=== PATIENT | female | born 1985 | race African-American/Black ===

== ENCOUNTER 2016-12-16 05:41 | Inpatient (IN) ==
[2016-12-16] MEDS ORDERED: DIAZEPAM 5 MG TABLET PO ONE (06:37)
[2016-12-16] MEDS ORDERED: PANTOPRAZOLE 40 MG TABLET PO ONE ×2 (06:37→06:50)
[2016-12-16] MEDS ORDERED: ISOSULFAN BLUE 5 ML VIAL SUBCUT ONE (06:44)
[2016-12-16] MEDS ORDERED: LIDOCAINE 1%/EPI INJ 20 ML VIAL ONE (06:44)
[2016-12-16] MEDS ORDERED: TISSUE ADHESIVE 1 EACH APPLICATOR TOP ONE (06:44)
[2016-12-16] MEDS ORDERED: HEPARIN 5,000 UNIT/1 ML VIAL ONE (06:44)
[2016-12-16] MEDS ORDERED: BUPIVACAINE MPF 0.25% /EPI 30 ML VIAL ONE (06:44)
[2016-12-16] MEDS ORDERED: DIAZEPAM 5 MG TABLET ONE (06:50)
--- NOTE | 2016-12-16 06:50 | History and Physical Update ---
History and Physical Update - History and Physical H&P was reviewed, the patient examined and there: are no changes in the patients condition since last H&P was completed. - Dictation Physical: refer to scanned H&P
[2016-12-16] MEDS ORDERED: LACTATED RINGERS 1,000 ML IV SCH (07:00)
[2016-12-16] MEDS ORDERED: DEXAMETHASONE 10 MG/1 ML VIAL ONE (07:11)
[2016-12-16] MEDS ORDERED: ROCURONIUM 100 MG/10 ML VIAL IV ONE (07:11)
[2016-12-16] MEDS ORDERED: PROPOFOL 200 MG/20 ML VIAL IV ONE (07:11)
[2016-12-16] MEDS ORDERED: ONDANSETRON 4 MG/2 ML VIAL ONE (07:11)
[2016-12-16] MEDS ORDERED: LIDOCAINE 2% 5 ML VIAL ONE (07:11)
[2016-12-16] MEDS ORDERED: KETOROLAC 30 MG/1 ML VIAL ONE (07:11)
--- NOTE | 2016-12-16 09:48 | Anesthesia ---
Anesthesia Post OP - Post Ansesthetic Evaluation Patient seen in post op: Yes Resp: within normal limits CV: within normal limits Mental: within normal limits Temp: within normal limits Bbsk-Sm-[id number]: within normal limits Nausea and Vomiting: within normal limits Pain: within normal limits
[2016-12-16] MEDS ORDERED: MIDAZOLAM 2 MG/2 ML VIAL ONE (09:52)
[2016-12-16] MEDS ORDERED: SEVOFLURANE 1 UNIT/15 MINUTE INH ONE (09:52)
[2016-12-16] MEDS ORDERED: fentaNYL 100 MCG/2 ML VIAL ONE (09:53)
--- NOTE | 2016-12-16 09:53 | Operative Note ---
Date of procedure: 12/16/16 Pre-op diagnosis: left breast cancer Post-op diagnosis: same Procedure: Preoperative diagnosis Left breast cancer Postoperative diagnosis Same Procedures performed 1. Right cephalic vein cutdown Mediport placement 2. Fluoroscopic guidance and interpretation of images 3. Injection for sentinel lymph node mapping left breast and axilla 4. Left axillary sentinel lymph node biopsy 5. Left total mastectomy Findings The cephalic vein was used to cannulate for Mediport placement. Initially the Mediport went across into the brachiocephalic vein on the left side and had to be redirected into the superior vena cava with wire access. Eventually the tip was placed in the cavoatrial junction under fluoroscopic guidance and the system was flushed with heparinized saline. The left axilla contained 3 lymph nodes that were removed. The first lymph node was blue and hot with a Swathi counter of 387. The second lymph node was blue and hot with a Nodaway counter of 38. The third lymph node was blue but not radioactive. The frozen section on these lymph node biopsies were negative for malignancy. A left breast total mastectomy was performed using standard technique with good gross margins on the tumor. Complications None apparent Specimen 1. Left axillary lymph nodes 2. Left total mastectomy with a stitch at the lateral margin. Blood loss 20 mL Anesthesia GETA Indications Left breast cancer with need for postoperative chemotherapy Description of procedure The patient was taken to the operating room and transferred to the operating table in the supine position. Pressure points were padded and SCDs were placed lower extremity's. General endotracheal anesthesia was administered. The bilateral breasts and neck was prepped with chlorhexidine as well as the left arm and there were draped sterilely. Preoperative antibiotics were administered and a timeout was performed. Lymphazurin blue was injected around the nipple Juan Alberto her complex and the area was massaged for 5 minutes to assist with uptake from the dermal plexus lymphatics. The right sided Mediport was then placed. The deltopectoral groove was palpated in the skin incision was made with a 10 blade scalpel. Bovie electrocautery was used to dissected onto the pectoralis muscle. The deltopectoral fat pad was then identified and dissected until the cephalic vein was identified. The cephalic vein is controlled with 2 3-0 Vicryl ties and the distal tie was secured on the vein to occluded. A venotomy was then made in the Mediport catheter was inserted into the cephalic vein. Fluoroscopy was used to visualize the catheter which initially went across into the left brachiocephalic system. Several attempts with catheter alone were inadequate to place this in the superior vena cava so wire was used through the catheter to redirected down and it did go down into the superior vena cava. The wire was removed. A Mediport pocket was created using a Bovie electrocautery and the Mediport was hooked up to the catheter. The flange was then secured down in the Mediport was sewn into the pocket with 3 -0 Vicryl ties. The system was aspirated and returned blood and it was then flushed with heparinized saline. The Mediport pocket was closed with running 4- 0 Monocryl sutures and Steri-Strips are placed with a Telfa Tegaderm dressing. This was then covered up and the left axillary sentinel lymph node biopsy was performed The gamma probe was used to identify the area of radioactivity in the left axilla was just below the axillary hairline. An incision was made with a 10 blade scalpel in this area and Bovie electrocautery was used to dissected the simultaneous tissues and axillary fascia. A blue lymphatic was seen coursing into the axillary lymph nodes. This was traced down to a packet of lymph nodes and there were 3 blue lymph nodes present. The gamma probe was used and these were also radioactive lymph nodes. These were all removed all 3 of them and examined separately on the back table. The first node was blue and also had a Nodaway count of 387. The second node was blue and had a count of 38. The third node was blue and had no radioactivity. The background in the axilla was less than 10. The axillary fascia was closed after the wound was irrigated. 3- 0 Vicryl sutures were used to close the axillary fascia. 4-0 Monocryl subcuticular sutures were used to close the skin and the wound was covered. The lymph nodes were sent to pathology for frozen section analysis. The frozen section came back negative for malignancy on all 3 lymph nodes. An elliptical skin incision was marked out using a marking pen to include the nipple-arreolar complex. An incision was made with a 10 blade scalpel. Bovie electrocautery was used to create skin flaps below the dermis and the simultaneous fat and the breast tissue. The flaps were extended superiorly to the clavicle, medially to the sternum, inferior lead to the inframammary fold, and laterally to the latissimus dorsi muscle. The breast tissue was then taken off of the pec muscle with the pec muscle fascia using Bovie electrocautery. The specimen was marked the lateral stitch and sent to pathology for permanent sections. The wound was irrigated. The wound was then treated with Tisseel application and a #10 SHAWNA drain was placed in the wound. The SHAWNA drain was sewn at the skin level using nylon sutures. The breast incision was closed with a 2- 0 Monocryl deep dermal suture and a 4-0 Monocryl running subcuticular suture. The wound was dressed with Mastisol and Steri-Strips and sterile dressings were applied. A compressive dressing was then placed with a sports problem to compress the tissues. The patient was awakened from anesthesia and transferred to recovery. Postoperative plan SHAWNA drain monitoring and pain control. Implants: right sided mediport placement #10 SHAWNA drain Anesthesia: TARIQA, local Surgeon / Physician: Mason Cuellar Estimated blood loss: minimal (20 mL) Specimens: other (see op note) Condition: stable Disposition: PACU Discharge Plan - Discharge Medications No Action No Known Home Medications [No Known Home Medications] - Follow Up or Referral - Forms/Instructions
[2016-12-16] MEDS ORDERED: HYDROmorphone 2 MG/1 ML VIAL IV PRN ×2 (10:04→10:55)
[2016-12-16] MEDS ORDERED: ONDANSETRON 4 MG/2 ML VIAL IV PRN ×2 (10:04→10:55)
[2016-12-16] MEDS ORDERED: PROMETHAZINE 25 MG/1 ML VIAL IM PRN (10:55)
[2016-12-16] MEDS: LACTATED RINGERS 1,000 ML IV SCH (12:16)
[2016-12-16] MEDS: KETOROLAC 15 MG/1 ML VIAL IV SCH ×2 (12:17→17:40)
--- NOTE | 2016-12-16 16:15 | Event Note ---
General Surgery Progress Note Chief complaint This patient is a 31-year-old woman with stage II a left breast cancer who underwent a right sided Mediport placement and left axillary sentinel lymph node biopsy with left total mastectomy on 10/16/2017 Interval history Patient is doing well and resting in bed. Her pain is well-controlled. Her SHAWNA drain has minimal output. Her vital signs are normal. Physical exam Afebrile, normal vital signs The patient is resting in bed. She is in no distress Assessment and plan Continue pain medication Plan for discharge home tomorrow with SHAWNA drain teaching
--- NOTE | 2016-12-16 19:46 | Event Note ---
I was called back to see this patient and she became lightheaded and had a brief orthostatic spell when using the restroom this evening. Her blood pressure was low at the time it was checked and she received some Trendelenburg position and IV fluids. I came to see her and she had a mild hematoma at the mastectomy site with some sanguinous drainage in the SHAWNA bulb that wasn't too severe. She had responded to IV fluids. Check status a dinner. She is very stable right now I don't feel this is an emergency so we are going to hold off on any hematoma evacuation but I'm going to check some labs. This is non- expanding hematoma. I think we have some time to resuscitate her and I will reexamine her in the morning. We will try to encourage this drain to the SHAWNA drain but others any concern for hematoma this undrained I will plan to take her to the operating room in the morning to evacuate her hematoma and reclose her wound. This was discussed with the patient. She is feeling better now shown some IV fluids and is back in bed.
[2016-12-16 20:09] LABS: Basophils % 0.1 % (0.0-0.8); Hematocrit 25.3 VOL% (35.7-47.0); Hemoglobin 8.3 GM/DL (12.0-16.0); Immature Granulocytes % 0.5 %; Immature Granulocytes Absolute 0.08 #; Lymphocytes # 0.8 10*3/uL (1.4-4.0); Lymphocytes % 4.7 % (21.3-54.2); Mean Corpuscular HGB Conc 32.8 GM/DL (32-36); Mean Corpuscular Hemoglobin 30 PG (27-34); Mean Corpuscular Volume 90.7 FL (87-102); Mean Platelet Volume 9.9 FL (9.6-12.0); Monocytes # 0.6 10*3/uL (0.11-0.8); Monocytes % 3.5 % (1.7-12.7); Neutrophils # 15.6 10*3/uL (1.4-7.4); Neutrophils % 91.2 % (38.7-73.9); Platelet Count 271 10*3/uL (130-400); Red Blood Count 2.79 10*6/uL (3.8-5.5); White Blood Count 17.1 10*3/uL (4.5-13.71)
--- NOTE | 2016-12-16 20:24 | Event Note ---
Hemoglobin was 8.3 d/dL today from 10.5 pre-op. Patient feels better and is hemodynamically normal. Will place compressive dressing tonight and repeat labwork and re-evaluate in the morning.
[2016-12-16 20:28] LABS: INR 1.1; PT Patient Result 11.5 SECS; Partial Thromboplastin Time 24.7 SECS (0-40)
[2016-12-16 21:18] LABS: Lymphocytes 5 % (20-55); Segmented Neutrophils 93 % (50-85); Total Cells Counted 100
--- NOTE | 2016-12-16 21:41 | Event Note ---
General Surgery Progress Note Chief complaint This patient is a 31-year-old woman with stage II a left breast cancer who underwent a right sided Mediport placement and left axillary sentinel lymph node biopsy with left total mastectomy on 10/16/2017 Interval history Patient experienced orthostatic near syncope earlier this afternoon with hypotension. She has not experienced any orthostasis since this event and states she is feeling better. She complains of hot flashes since her procedure which continue to decrease in frequency and intensity. She complains of a scratchy throat that is improving. She does not experience pain at site of operation unless she moves her upper extremities. Physical exam Most recent vitals were all within normal limits. The patient is supine in bed and resting in no distress. Assessment and plan Monitor patient status and trending hemoglobin and hematocrit.
[2016-12-17] MEDS: LACTATED RINGERS 1,000 ML IV SCH ×3 (00:26→17:32)
[2016-12-17 04:56] LABS: Hematocrit 21.5 VOL% (35.7-47.0); Hemoglobin 6.9 GM/DL (12.0-16.0)
[2016-12-17] MEDS ORDERED: ENOXAPARIN 40 MG/0.4 ML SYRINGE SUBCUT SCH (05:00)
[2016-12-17] MEDS ORDERED: SODIUM CHLORIDE 0.9% 250 ML IV PRN ×2 (07:04→07:25)
[2016-12-17] MEDS ORDERED: BUPIVACAINE MPF 0.25% /EPI 30 ML VIAL ONE (07:19)
[2016-12-17] MEDS ORDERED: PROPOFOL 200 MG/20 ML VIAL IV ONE (07:53)
[2016-12-17] MEDS ORDERED: LIDOCAINE 1% 5 ML VIAL ONE (07:53)
[2016-12-17] MEDS ORDERED: MIDAZOLAM 2 MG/2 ML VIAL ONE (09:09)
[2016-12-17] MEDS ORDERED: SODIUM CHLORIDE 0.9% 1,000 ML IV ONE (09:09)
[2016-12-17] MEDS ORDERED: SEVOFLURANE 1 UNIT/15 MINUTE INH ONE (09:09)
[2016-12-17] MEDS ORDERED: fentaNYL 100 MCG/2 ML VIAL ONE (09:09)
--- NOTE | 2016-12-17 09:20 | Operative Note ---
Date of procedure: 12/17/16 Pre-op diagnosis: post-operative hematoma left mastectomy site Post-op diagnosis: same Procedure: Preoperative diagnosis Post-operative hematoma left mastectomy site Post-operative diagnosis same Procedures Performed evacuation of left breast hematoma Findings Moderate sized hematoma left breast mastectomy site with no active bleeding Complications none apparent Anesthesia GETA Blood Loss 50 mL Indications post-operative hematoma left breast Description of Procedure The patient was taken to the operating room and transferred to the operating table in the supine position. General Anesthesia was administered and the left breast was prepped and draped sterilly. Time out was called and pre-operative antibiotics were administered. The patient's incision was opened and a moderate sized hematoma was evacuated. There was no active bleeding. The drain was left in place and the wound was closed with 3-0 monocryl deep dermal suture and 4-0 monocryl subcuticular sutures. The wound was dressed with a compressive dressing and the patient was awakened from anesthesia and transferred to recovery. Post-operative Plan admit back to [facility] repeat cbc after blood transfusion is finished Anesthesia: GETA Surgeon / Physician: Mason Cuellar Estimated blood loss: other (50 mL) Specimens: none sent Condition: stable Disposition: PACU Results - Labs CBC & BMP: 12/17/16 03:41 Discharge Plan - Discharge Medications No Action No Known Home Medications [No Known Home Medications] - Follow Up or Referral - Forms/Instructions
[2016-12-17 10:47] LABS: Basophils % 0.2 % (0.0-0.8); Eosinophils % 0.1 % (0.00-10.9); Hematocrit 30.2 VOL% (35.7-47.0); Immature Granulocytes % 0.2 %; Immature Granulocytes Absolute 0.02 #; Lymphocytes # 2.4 10*3/uL (1.4-4.0); Lymphocytes % 26.2 % (21.3-54.2); Mean Corpuscular HGB Conc 33.4 GM/DL (32-36); Mean Corpuscular Hemoglobin 31 PG (27-34); Mean Corpuscular Volume 91.2 FL (87-102); Mean Platelet Volume 10.3 FL (9.6-12.0); Monocytes # 0.8 10*3/uL (0.11-0.8); Monocytes % 8.3 % (1.7-12.7); Neutrophils # 5.9 10*3/uL (1.4-7.4); Red Blood Count 3.31 10*6/uL (3.8-5.5); Red Cell Distribution Width 13.3 % (9.3-17.3)
[2016-12-17 10:54] LABS: White Blood Count 9.2 10*3/uL (4.5-13.71)
[2016-12-17 10:55] LABS: Hemoglobin 10.1 GM/DL (12.0-16.0); Platelet Count 209 10*3/uL (130-400)
--- NOTE | 2016-12-17 16:22 | Event Note ---
General Surgery Progress Note Chief complaint This patient is a 31-year-old woman with stage IIA left breast cancer who underwent a right sided Mediport placement and left axillary sentinel lymph node biopsy with left total mastectomy on 10/16/2017 complicated by postoperative hematoma treated with evacuation on 12/17/2016. Interval history Patient is doing well and resting in bed. Her pain is well-controlled. Her SHAWNA drain has minimal output and it looks serosanguinous. Her vital signs are normal. Physical exam Afebrile, normal vital signs The patient is resting in bed. She is in no distress There is no evidence of recurrent hematoma Assessment and plan The patient seems to be doing well at this time. We will repeat her lab work tomorrow and plan for discharge home tomorrow if she is doing well.
--- NOTE | 2016-12-18 10:54 | Discharge Summary ---
Hospital Course - Hospital Course Hospital Course: This patient was admitted to the hospital following a right sided Mediport placement and left mastectomy with sentinel lymph node biopsy. Her hospital course was complicated by postoperative hematoma that required a return trip to the operating room for evacuation on postop day 1. She did well after this and she did receive 2 units of packed red blood cells which responded appropriately to blood transfusion. She was kept until the next day when her hemoglobin was stabilizing and her vital signs are normal there is no evidence of hematoma on exam. She was discharged home with scheduled follow-up in 1 week for possible drain removal. Specialty Discharge - Follow Up or Referrals Follow up with: Mason Cuellar MD [Physician] - 12/30/16 3:00 pm Discharge Plan - Discharge Data Disposition: Disch To Home/Self Care Condition at Discharge: Stable Discharge Diet: advance to your usual diet Activity: resume usual activities as tolerated Hygiene: may shower Weight Bearing at Discharge: full weight bearing, weight bear as tolerated Driving: not until seen by doctor Contact your physician if you experience:: fever over 101, Difficulty voiding, Redness or swelling, Nausea/Vomiting, Shortness of breath, Bleeding, pain uncontrolled by pain medications Wound / Dressing Care Instructions: Strip SHAWNA drain 3 times daily and empty bulb and record output with times and dates. Keep compressive dressing over mastectomy site with a tight fitting sports bra and a bulky dressing underneath. - Discharge Medications New HYDROcodone/ACETAMIN 7.5-325 [[place] 7.5-325] 1 tablet PO Q4H PRN #45 tablet PRN Reason: Pain Moderate (4-7) - Follow Up or Referral Follow Up: Mason Cuellar MD [Physician] - 12/30/16 3:00 pm - Forms/Instructions Instructions: Mastectomy (DC), Chidi Romero Drain Care Instructions Exam - Constitutional Vitals: Period Temp Pulse Resp BP Sys/Mendez Pulse Ox Last 24 Hr 97.5 F-99.1 F 69-90 18-20 119-159/65-89 97-99 General appearance: no acute distress, over weight - Head Head exam: Present: normal inspection, normocephalic - Eye Eye exam: Present: EOMI Pupils: Present: WILLIE - ENT ENT exam: Present: normal exam - Neck Neck exam: Present: normal inspection - Respiratory Respiratory exam: Present: clear to auscultation bilaterally. Absent: accessory muscle use, chest wall tenderness - Cardiovascular Cardiovascular exam: Present: regular rate and rhythm. Absent: systolic murmur , tachycardia - GI/Abdominal GI/Abdominal exam: Present: soft. Absent: tenderness, rebound - Extremities Exam Extremities exam: Present: normal inspection, normal capillary refill - Back Exam Back exam: Present: normal inspection - Neurological Exam Neurological exam: Present: alert, oriented X3 - Psychiatric Psychiatric exam: Present: normal affect, normal mood - Skin Skin exam: Present: normal color, warm, other (the left mastectomy site is clean with no hematoma. There is serosanguineous drainage in the SHAWNA drain.) Discharge Results Procedures and tests throughout hospitalization: Pending Orders 12/17/16 03:41 Red Blood Cells Leuko Red Stat Labs on day of discharge: Labs from last 24 hours 12/18/16 12/17/16 05:33 10:27 WBC 9.2 D RBC 3.31 L Hgb 9.2 L 10.1 L D Hct 30.2 L MCV 91.2 MCH 31 MCHC 33.4 RDW 13.3 Plt Count 209 D MPV 10.3 Neut % (Auto) 65.0 Lymph % (Auto) 26.2 [place] % (Auto) 8.3 Eos % (Auto) 0.1 Baso % (Auto) 0.2 Neut # (Auto) 5.9 Lymph # (Auto) 2.4 [place] # (Auto) 0.8 Eos # (Auto) 0.0 Baso # (Auto) 0.0 Immature Gran % 0.2 Nucleated RBC % 0.0 Immature Gran # 0.02 Nucleated RBCs # 0.00 DS: Provider Date of admission: 12/16/16 05:41 Primary care physician: . No PCP Attending physician on admission: Mason Cuellar MD Consults: 12/16/16 11:16 Consult to Pharmacy [CONS] Routine Reason for Pharmacy Consult: Adjust Meds Renal Funct 12/17/16 07:05 Consult to Anesthesiology [CONS] Routine Consulting Provider: Reason for Anesthesiology: Pre-op Clearance Discharging clinician: Mason Cuellar MD Expected date of discharge: 12/18/16
[2016-12-18 11:10] VITALS: BP 124/76
--- NOTE | 2016-12-18 11:50 | Pathology Report from [facility] ---
ACCESSION # : [id number] PATIENT NAME : Val Valdes ORDERING DR : Mason Cuellar MD CLINICAL HX: LT breast CA POST-OP DX: Same SPECIMEN INFO: #1 & #2 [place] node #3 Extra lymphatic tissue #4 LT breast tissue (stitch is lateral) GROSS DESCRIPTION: #1 Received fresh for frozen section labeled with the patient 's name "VAL VALDES and #1" consists of a 2.4 x 1.2 x 0.8 cm hyperemic fatty tissue fragment. Sectioning through reveals two possible lymph nodes, one measures 0.4 x 0.3 cm, the second measures 1.5 x 1.0 cm. Both with a green- blue dye uptake. The smaller node is inked black and sales representative trainee sections of the larger submitted in cassette #1.#2 Received fresh for frozen section labeled with the patient's name "VAL VALDES and #2" consists of a red- marti fatty tissue fragment measuring 1.5 x 0.9 cm. Sectioning through reveals a 0.8 x 0.7 cm probable lymph node with blue-moon dye uptake. A sales representative trainee section submitted in cassette #2 for frozen section.#3 Received fresh for frozen section labeled with the patient's name "VAL VALDES and #3" consists of a fatty tissue fragment measuring 3.9 x 2.1 cm. Sectioning through reveals moon lymph node measuring 1.1 x 0.5 cm. Bisected and submitted in cassette #3 for frozen section.#4 Received in formalin labeled with the patient' s name "VAL VALDES and #4" consists of a modified left radical mastectomy specimen measuring 17.6 x 16.2 x 2.3 cm. There is a marti ellipse of skin present with an inverted nipple measuring 15.4 x 4.6 cm. A suture is present which short the lateral margin. Sectioning through the upper outer quadrant reveals a well-circumscribed white-marti mass that measures 1.9 x 2.4 cm and which comes to within 0.7 cm of the anterior margin which is painted blue which appears to be 1.5 cm of the deep margin and is painted black. The remainder of the breast is markedly dense fibrous stroma with cystic areas and possible calcifications present. Axillary tail will be submitted in dissect aid for additional lymph nodes. No lymph nodes found. Sections submitted: 4A sales representative trainee nipple and skin, 4B tumor with anterior margin, 4C and 4D tumor and deep margin, 4E and 4F and 4G sales representative trainee dense stromal tissue, cystic areas and possible calcification. Possible lymph nodes submited in cassete 4I. (12/17/2016)Note: Time in formalin is 09:00 AM on Wednesday12/16/2016. Time out of formalin is 06:00 PM on Wednesday12/16/2016. DIAGNOSIS FOR VAL VALDES: SEE PAGE #2PAGE #2#1-#4 LEFT BREAST, MODIFIED RADICAL MASTECTOMY WITH SENTINEL & AXILLARY NODES (Intact, 17.6 x 16.2 cm): TUMOR TYPE: Invasive ductal carcinoma. TUMOR SITE: UOQ TUMOR SIZE: 24 mm. PAO GRADE III (tubules = 3, pleomorphism = 3, mitoses = 12 MF/ 10 HPF ) TUMOR MARGINS: Margins uninvolved by carcinoma, with nearest (anterior) margin = 7 mm. DCIS: Absent. LYMPH-VASCULAR INVASION: Absent. LYMPH NODES: Total lymph nodes present (sentinel & non sentinel): 3; Total sentinel nodes: 2. All lymph nodes negative for tumor (0/3). AJCC PATHOLOGIC STAGE IIA [pT2pN0(i-)]. SERVICE DATE: 12/16/2016 REPORT DATE: 12/18/2016 PATHOLOGIST: Betty Moran M.D. [facility]
== END 2016-12-18 11:50 | disposition home or self-care (01) | DRG 580 ==
LOC: N.OR 05:41 → N.SDSINP 05:41 → N.3E 09:49 → EDSTATUS 12:00 → N.3E 12-17 15:09
PROVIDERS: ADMIT Surgery; ATTEND Surgery